=== PATIENT | female | born 1945 | race Hispanic/Latino ===

== ENCOUNTER 2016-11-27 06:55 | Day surgery (SDC) | payer MEDICARE, OTHER ==
[2016-11-25 12:36] VITALS: BMI 36.6
[2016-11-27] MEDS ORDERED: Propofol 10 mg/ml Inj (20 ML) ONE (08:54)
[2016-11-27] MEDS ORDERED: Lidocaine Hydrochloride 5 ML INJ ONE (08:55)
[2016-11-27] MEDS ORDERED: Lactated Ringer's 500 ML IV SCH (09:15)
[2016-11-27 09:34] VITALS: TEMP 96.8
[2016-11-27 10:17] VITALS: RESP 14; O2SAT 96
[2016-11-27 10:37] VITALS: BP 111/67; PULSE 88
== END 2016-11-27 10:30 | disposition home or self-care (01) ==
LOC: C.ENDO 06:55
PROVIDERS: ATTEND Internal Medicine Gastroenterology
DX: D12.0 Benign neoplasm of cecum (principal); Z86.010 Personal history of colon polyps; K57.90 Diverticulosis of intestine, part unspecified, without perforation or abscess without bleeding; K64.8 Other hemorrhoids
CPT/HCPCS: 45380; 88305; J2704; J7120